=== PATIENT | female | born 1950 | race American Indian/Alaskan Native ===

== ENCOUNTER 2018-12-14 10:11 | Outpatient (CLI) | payer MEDICARE ==
--- NOTE | 2018-12-15 08:50 | Mammography Report ---
BILATERAL DIGITAL SCREENING MAMMOGRAMS WITH CAD INDICATION: Screening. COMPARISONS: None available. However, she indicated that she had had a prior mammogram in [place]. FINDINGS: Craniocaudal and mediolateral oblique views of both breasts were obtained using 2-D digital acquisition.In addition to standard review, the examination was analyzed for possible abnormalities using a computer-assisted detection device (iCAD). There are scattered areas of fibroglandular density. Bilateral parenchymal asymmetries require comparison with a prior mammogram or additional imaging. No architectural distortion or suspicious calcifications. IMPRESSION: Comparison with the previous mammogram is required. We will attempt to obtain a prior mammogram for c omparison. If we did not obtain a prior mammogram within 30 days, a revised report will be issued rec ommending a recall for additional imaging. Please be advised that the patient should not schedule an appointment for return until adequate time (at least 2 weeks) has passed breast to obtain the prior m ammogram. BI-RADS CATEGORY 0: INCOMPLETE - NEED ADDITIONAL IMAGING EVALUATION AND/OR PRIOR MAMMOGRAMS FOR COMP ARISON Information is entered into a reminder system for a target due date for the next mammogram. The resul ts and recommendations were sent to the patient by mail. Signer Name: Sonny Yi MD Signed: 12/15/2018 8:46 AM Workstation Name: [id number]
== END 2018-12-14 10:12 | disposition home or self-care (01) ==
LOC: MAMMO 10:11
PROVIDERS: ATTEND Hospitalist
DX: Z12.31 Encounter for screening mammogram for malignant neoplasm of breast (principal)
CPT/HCPCS: 77067

== ENCOUNTER 2021-03-06 11:15 | Outpatient (CLI) | payer MEDICARE ==
--- NOTE | 2021-03-06 13:30 | Mammography Report ---
DIGITAL SCREENING MAMMOGRAM WITH CAD, 03/06/2021 CLINICAL INFORMATION / INDICATION: Routine screening mammography. SCRN MAMMO TECHNIQUE: Digital bilateral 2D mammography was obtained in the craniocaudal and mediolateral obliqu e projections. This examination was interpreted with the benefit of Computer-Aided Detection analysis . COMPARISON: 11/15/2013 through 12/14/2018. FINDINGS: Breast Density: There are scattered areas of fibroglandular density. No dominant mass, suspicious calcifications, or architectural distortion in the left breast. There is a 1.8 cm ovoid nodule in the right retroareolar region near the 3:00 position 1 to 2 cm from the nipple in the anterior depth. IMPRESSION: 1.8 nodular density in the right subareolar region medially. Right breast ultrasound is r ecommended for further characterization. Follow up recommendation: Ultrasound BI-RADS Category 0: Incomplete. Needs additional imaging evaluation and/or prior mammograms for klever rison. A "normal" or negative report should not discourage follow up or biopsy of a clinically significant f inding. A written summary of these findings will be mailed to the patient. The patient will be entered into a mammography reporting system which will generate a reminder letter for the patient's next appointmen t at the appropriate interval. The [employer] recommends yearly mammograms starting at age 40 and continuing as l jeremy as a woman is in good health. Breast MRI is recommended for women with an approximate 20-25% or greater lifetime risk of breast cancer, including women with a strong family history of breast or ova tammie cancer or who have been treated for Hodgkin's disease. Signer Name: Ladarius Vaca MD Signed: 03/06/2021 1:25 PM Workstation Name: [id number]
== END 2021-03-06 11:16 | disposition home or self-care (01) ==
LOC: MAMMO 11:15
PROVIDERS: ATTEND Obstetrics & Gynecology
DX: Z12.31 Encounter for screening mammogram for malignant neoplasm of breast (principal)
CPT/HCPCS: 77067

== ENCOUNTER 2021-04-16 11:04 | Outpatient (CLI) | payer MEDICARE ==
--- NOTE | 2021-04-16 17:15 | Ultrasound Report ---
EXAMINATION: Right Limited Breast Ultrasound, 04/16/2021 INDICATION: Abnormal screening mammogram. Screening recall the right breast for nodular density. COMPARISON: Screening mammogram, 03/06/2021 FINDINGS: Targeted ultrasound evaluation was performed of the area of interest. Sonographic evaluati on of the right breast at the 2:00 periareolar location demonstrates a 1.3 cm simple cyst. This corre sponds to the mammographic findings. There is no evidence of suspicious solid mass or shadowing. IMPRESSION: 1. Right breast cyst as described representing a benign finding. Follow up recommendation: Routine yearly BI-RADS Category 2: Benign. A normal or "negative" report should not preclude biopsy or follow-up of a clinically suspicious find ing. Signer Name: Nicole Trevino MD Signed: 04/16/2021 5:11 PM Workstation Name: [email or web address]
== END 2021-04-16 11:05 | disposition home or self-care (01) ==
LOC: US 11:04
PROVIDERS: ATTEND Obstetrics & Gynecology
DX: N60.01 Solitary cyst of right breast (principal)